=== PATIENT | female | born 2000 | race Caucasian/White ===

== ENCOUNTER 2022-06-06 18:57 | Emergency (ER) | payer OTHER, SELFPAY ==
[2022-06-06 19:13] VITALS: BP 129/68; PULSE 87; RESP 19; TEMP 38.1; O2SAT 100
--- NOTE | 2022-06-06 19:14 | ED.URI ---
HPI - URI/Sore Throat General Chief Complaint: Upper Respiratory Infection Stated Complaint: migraine sore throat Time Seen by Provider: 06/06/22 19:14 Source: patient and RN notes reviewed History of Present Illness HPI Narrative: Patient is a 21-year-old female who presents the urgent care with complaints of sore throat and migraine. Patient states that her headache started 2 days ago and is her typical migraine headache. States that she woke up with a sore throat today and has been taking Sudafed and sinus medication. Patient takes butalbital for her migraines. Denies of any fever, nausea or vomiting. Denies of any contact with illness. 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 No other acute complaints. No acute distress noted. Patient read the plan of care. Some parts of this dictation were generated by voice recognition software and may contain typographical and/or grammatical inaccuracies. Related Data Home Medications Medication Instructions Recorded Confirmed [id number] 1 tablet PO DIRECTED 06/06/22 06/06/22 50 mg-325 mg-40 mg tablet norgestimate 0.25 mg-ethinyl 1 tablet PO DAILY 06/06/22 06/06/22 estradiol 35 mcg tablet (Estarylla) Allergies Allergy/AdvReac Type Severity Reaction Status Date / Time No Known Allergies Allergy Unverified 06/06/22 19:33 Review of Systems Review of Systems: CONSTITUTIONAL: Denies fever, chills, or sweats. EYES: Denies visual changes, redness, or discharge. ENT: Denies rhinorrhea, congestion, or otalgia. Reports of sore throat CARDIOVASCULAR: Denies chest pain, palpitations, or edema. RESPIRATORY: Denies cough or dyspnea. GASTROINTESTINAL: Denies abdominal pain, nausea, vomiting, or diarrhea. GENITOURINARY: Denies dysuria or hematuria. SKIN: Denies rash or itching. MUSCULOSKELETAL: Denies back pain, joint pain, or myalgia. NEUROLOGIC: Reports of headache All other systems reviewed are negative, except as documented in HPI. PMFSH Comments At the time of my signature, I reviewed and agree with the nursing past medical, surgical, social, and family history. There is no relevant family history pertinent to the patient complaint. Exam Narrative: GENERAL: This is a well-nourished, well-developed patient, in no apparent distress. HEAD: normocephalic, atraumatic. EYES: PERRL. Sclera clear/white. Vision is grossly intact. EARS: External ears normal, auditory canals clear and without drainage, TMs normal without perforation. Hearing grossly intact. NOSE: External nose normal with no obvious nasal discharge, nares without redness, no rhinorrhea. THROAT: Mucous membranes moist. Mild bilateral tonsillar edema with exudate noted to the right. Moderate postnasal drainage. NECK: Neck supple, non-tender without lymphadenopathy CARDIOVASCULAR: Regular rate and rhythm without murmurs, gallops, or rubs. RESPIRATORY: Clear to auscultation. Breath sounds equal bilaterally. No wheezes, rales, or rhonchi. SKIN: warm, intact with no suspicious lesions or rash, good texture and turgor. NEURO: awake, alert, and oriented to person, place and time. There were no obvious focal neurologic abnormalities. EXTREMITIES: No clubbing, cyanosis, or edema Course Course Level of Care: Express Care Visit Vital Signs Vital signs: Vital Signs Temperature 100.5 F H 06/06/22 19:13 Pulse Rate 87 06/06/22 19:13 Respiratory Rate 19 06/06/22 19:13 Blood Pressure 129/68 06/06/22 19:13 Pulse Oximetry 100 06/06/22 19:13 Oxygen Delivery Room Air 06/06/22 19:13 Temperature 100.5 F H 06/06/22 19:13 Pulse Rate 87 06/06/22 19:13 Respiratory Rate 19 06/06/22 19:13 Blood Pressure 129/68 06/06/22 19:13 Pulse Oximetry 100 06/06/22 19:13 Oxygen Delivery Room Air 06/06/22 19:13 Reviewed MDM - URI/Sore Throat MDM Narrative Medical decision making narrative: Educated the patient on strep culture we wi
== END 2022-06-06 19:38 | disposition home or self-care (01) ==
PROVIDERS: Emergency Provider Nurse Practitioner Family
DX: J02.9 Acute pharyngitis, unspecified (principal)
CPT/HCPCS: 87081; 99203; G0463